=== PATIENT | male | born 1945 | race Two or more races ===

== ENCOUNTER → 2019-11-15 | Day surgery (SDC) | payer MEDICARE, MEDICAID ==
[~2019-11-15] VITALS: Ht 165.1 cm; Wt 72.6 kg
[~2019-11-15] MED LIST: ATOR20TA50 PO; BUPIVACAINE 0.25% INJ 50ML VIAL ONE; LIDOCAINE 1% HCL (LOCAL ANESTH.) INJ 20ML MDV ONE; LISI-648 PO; MIDAZOLAM HCL 1MG/1ML-2 ML VIAL ONE; NAP500T PO; OMEP20TA85 PO; ONDANSETRON HCL 4 MG/2 ML VIAL IV PRN; PROPOFOL 10 MG/ML 20 ML IV ONE; SUCCINYLCHOLINE CHLORIDE 20 MG/ML 10ML VIAL IV ONE; ceFAZolin 1GM/50ML 50 ML IV ONE; ePHEDrine SULFATE 50 MG/ML AMP IV PRN; fentaNYL CITRATE 100 MCG/2 ML VL IV ONE; fentaNYL CITRATE 100 MCG/2 ML VL IV PRN; fentaNYL CITRATE 100 MCG/2 ML VL ONE; hydrALAZINE HCL 20 MG/ML VL IV PRN; hydrALAZINE HCL 20 MG/ML VL ONE
[2019-11-15 11:08] VITALS: BP 157/89
== END | disposition home or self-care (01) ==
LOC: SUR 07:03
PROVIDERS: ATTEND Orthopaedic Surgery Hand Surgery
DX: M72.0 Palmar fascial fibromatosis [Dupuytren] (principal); R22.0 Localized swelling, mass and lump, head; I10 Essential (primary) hypertension; K21.9 Gastro-esophageal reflux disease without esophagitis; I25.10 Atherosclerotic heart disease of native coronary artery without angina pectoris; Z87.891 Personal history of nicotine dependence; Z98.890 Other specified postprocedural states; Z79.899 Other long term (current) drug therapy; Z20.828 Contact with and (suspected) exposure to other viral communicable diseases
CPT/HCPCS: 26111; 26123; 26125; 88304; 93005; J0330; J0360; J0690; J2001; J2250; J2704; J3010; J3490; U0003